=== PATIENT | female | born 1950 | race Caucasian/White ===

== ENCOUNTER 2018-06-13 09:10 | Emergency (ER) | payer MEDICARE, BC ==
--- NOTE | 2018-06-13 09:42 | ED ---
Upper Extremity Pain - HPI Summary HPI Summary: A 67 y/o F presents to ED with c/o ongoing L shoulder pain onset 06/10/18. The pain is radiating up to her neck and down throughout LUE. She thinks the pain occurred when she took the ham out of the oven on 06/09/18. Associated sx: LUE limited ROM. Aggravating: pressure, movement. She's taken Tylenol for the pain to no relief, but did not take it today. - History of Current Complaint Chief Complaint: Delvin Stated Complaint: PAIN IN LEFT SHOULDER AND NECK Time Seen by Provider: 06/13/18 09:30 Hx Obtained From: Patient, Medical Records Onset/Duration: Started Days Ago, Still Present Timing: Constant, Lasting Days Severity Initially: Moderate Severity Currently: Severe - 10 out of 10 Pain Location: Shoulder Aggravating Factor(s): Movement, Other - pressure Associated Signs & Symptoms: Positive: Neck Pain - Allergies/Home Medications Allergies/Adverse Reactions: Allergies Allergy/AdvReac Type Severity Reaction Status Date / Time MS Nitrofurantoin Allergy Severe See Comment Verified 11/03/14 00:10 [From Macrodantin] MS Sulfa Antibiotics Allergy Intermediate Rash Verified 11/03/14 00:10 [Sulfa Antibiotics] PMH/Surg Hx/FS Hx/Imm Hx Previously Healthy: No Endocrine/Hematology History: Denies: Hx Diabetes Cardiovascular History: Reports: Hx Hypercholesterolemia Denies: Hx Congestive Heart Failure, Hx Hypertension GI History: Reports: Hx Diverticulosis, Hx Obstructive Bowel - questionable, Other GI Disorders - polyps History: Denies: Hx Renal Disease Sensory History: Reports: Hx Contacts or Glasses Opthamlomology History: Reports: Hx Contacts or Glasses - Cancer History Hx Chemotherapy: No Hx Radiation Therapy: No - Surgical History Surgery Procedure, Year, and Place: , RIGHT SHOULDER ROTATOR CUFF TEAR Infectious Disease History: No Infectious Disease History: Reports: Hx Shingles Denies: Traveled Outside the [place] in Last 30 Days - Family History Known Family History: Positive: Unknown - ADOPTED - Social History Occupation: Retired Lives: With Family Alcohol Use: None Hx Substance Use: No Substance Use Type: Reports: None Hx Tobacco Use: Yes Smoking Status (MU): Heavy Every Day Tobacco Smoker Review of Systems Negative: Fever Musculoskeletal: Other - pos: neck pain, L shoulder, LUE pain Positive: Decreased ROM - LUE All Other Systems Reviewed And Are Negative: Yes Physical Exam - Summary Physical Exam Summary: Appearance: The patient is well-nourished in no acute distress and in no acute pain. Skin: The skin is warm and dry and skin color reflects adequate perfusion. HEENT: The head is normocephalic and atraumatic. The pupils are equal and reactive. The conjunctivae are clear and without drainage. Nares are patent and without drainage. Mouth reveals moist mucous membranes and the throat is without erythema and exudate. The external ears are intact. The ear canals are patent and without drainage. The tympanic membranes are intact. Neck: the neck is supple with full range of motion and non-tender. There are no carotid bruits. There is no neck vein distension. Respiratory: Chest is non-tender. Lungs are clear to auscultation and breath sounds are symmetrical and equal. Cardiovascular: Heart is regular rate and rhythm. There is no murmur or rub auscultated. There is no peripheral edema and pulses are symmetrical and equal. Abdomen: The abdomen is soft and non-tender. There are normal bowel sounds heard in all four quadrants and there is no organomegaly palpated. Musculoskeletal: There is no back tenderness noted. Tenderness with spasm at L rhomboid, superior trapezius, and paracervically. There is good capillary refill. There is no peripheral edema or calf tenderness elicited. Neurological: Patient is alert and oriented to person, place and time. The patient has symmetrical motor strength in all four extremities. Cranial nerves are grossly intact. Deep tendon reflexes are symmetrical and equal in all four extremities. Psychiatric: The patient has an appropriate affect and does not exhibit any anxiety or depression. Triage Information Reviewed: Yes Vital Signs On Initial Exam: Initial Vitals Temp Pulse Resp BP Pulse Ox 97.8 F 82 14 167/63 99 06/13/18 09:29 06/13/18 09:29 06/13/18 09:29 06/13/18 09:29 06/13/18 09:29 Vital Signs Reviewed: Yes Diagnostics - Vital Signs Vital Signs Temp Pulse Resp BP Pulse Ox 06/13/18 09:29 97.8 F 82 14 167/63 99 - Laboratory Lab Statement: Any lab studies that have been ordered have been reviewed, and results considered in the medical decision making process. Course/Dx - Course Course Of Treatment: Ms. Gross certainly seemed to have a musculoskeletal issue with her left shoulder. She had spasm and tenderness in this. Trapezius , rhomboid as well as left paracervical area. She had a few erythematous spots on her distal forearm which I could not identify. This does not seem to be a shingles issue she is not hypersensitive to touch at this point. - Diagnoses Provider Diagnoses: Left shoulder strain Discharge - Sign-Out/Discharge Documenting (check all that apply): Patient Departure - D/C - Discharge Plan Condition: Stable Disposition: HOME Prescriptions: LORazepam TAB(*) [Ativan 0.5 MG TAB (*)] 0.5 mg PO BEDTIME PRN #5 tab MDD 1 PRN Reason: Pain Patient Education Materials: Lorazepam (By mouth), Rotator Cuff Injury (ED) Referrals: Lucero Corea MD [Primary Care Provider] - 3 Days Additional Instructions: As we discussed, take Ibuprofen for pain. Please return to the ED if you experience new or worsening symptoms. Follow up with your primary care provider in 2-3 days. - Billing Disposition and Condition Condition: STABLE Disposition: Home - Attestation Statements Document Initiated by Scribe: Yes Documenting Scribe: Jerilyn Jewell Provider For Whom Scribe is Documenting (Include Credential): Dr. Kwesi Odonnell MD Scribe Attestation: Jerilyn Elena scribed for Dr. Kwesi Odonnell MD on 06/13/18 at 1112. Scribe Documentation Reviewed: Yes Provider Attestation: The documentation as recorded by the Jerilyn yañez accurately reflects the service I personally performed and the decisions made by , Dr. Kwesi Odonnell MD Status of Scribe Document: Viewed
[2018-06-13 10:19] VITALS: BP 153/70
== END 2018-06-13 10:15 | disposition home or self-care (01) ==
LOC: ED 09:10
DX: S46.912A Strain of unspecified muscle, fascia and tendon at shoulder and upper arm level, left arm, initial encounter (principal); M25.512 Pain in left shoulder; M54.2 Cervicalgia; F17.210 Nicotine dependence, cigarettes, uncomplicated; X58.XXXA Exposure to other specified factors, initial encounter; Y92.9 Unspecified place or not applicable
CPT/HCPCS: 99282